=== PATIENT | female | born 2000 | race African-American/Black ===

== ENCOUNTER 2018-04-12 17:36 | Emergency (ER) | payer SELFPAY ==
--- OUTSIDE RECORDS SUMMARY | 2018-04-12 17:48 | XMS REPORT | Continuity of Care Document ---
:2000 Author Organization [facility] Address [address], [place] [id number] Phone Care Team Providers Name Role Phone Amanda Vega NP Unavailable Unavailable Allergies, Adverse Reactions, Alerts Substance Reaction Status No Known Allergies Active Medications Medication Instructions Dosage Effective Dates Status Comments (start - stop) Depo-Provera 150 mg/mL IM Q 11-13 weeks - Active intramuscular suspension Problems Condition Effective Dates (start - Clinical Status Comments stop) Body mass index (BMI) 23.0-23.9, adult Human immunodeficiency virus [HIV] - counseling Encounter for test, result negative Encounter for initial prescription of injectable contracep Procedures Procedure Date PREVENTIVE COUNSELING, Under 8 Minutes URINE TEST OFFICE/OUTPATIENT VISIT, NEW INJECTION DEPO/CEFTRIAXONE BLOOD PRESSURE Height/Weight Method Initiation OTHER Medical Services Contraceptive Cashier Host/Hostess.Svc. Other Cashier Host/Hostess.Svc. STI DEPO Results Test Name Date and Time Measure Units Reference Range Abnormal Flag Status Comments Panel Description: High Sensitivity Urine Test Final High Sensitivity Urine 16:04:46 NegativeInternal Quality Final Test Control: Positive Advance Directives Directive Yes / No Effective Date File Name No information Encounters Encounter Practice Location Reason(s) Diagnoses Date Provider Providers Description For Visit Copied on Encounter OFFICE/OUTPA [facility] Body mass index Silvia Referring TIENT VISIT, [facility] Control (BMI) 23.0-23.9, 8-201 Amanda. Provider: SADI Vasques (chief adultHuman [address] complaint) immunodeficiency Javi Vega JSolo, [address], [address] [facility] [address], [facility], for test, [place], , result [id number], [place], [id number]. [id number], negativeEncounter [place]. tel:+ for initial tel: [phone] tel:+60 prescription of [phone] [id number] injectable contracep Family History Family Member Diagnosis Age At Onset 1st degree relative No hx of coronary heart disease (female <65, male <55) 1st degree relative No hx of osteoporosis 1st degree relative No hx of cancer of breast, colon, endometrium or ovary 1st degree relative No hx of venous thromboembolism Immunizations Vaccine Date Status Comments No information Payers Payer name Insurance type Covered green party ID Authorization(s) Medicaid MC [id number] Social History Type Description Quantity Date Captured Comments Alcohol Use Details Unknown Caffeine Use Details Unknown Tobacco Use Status Current non-smoker Smoking Status Never smoker Non-Smoking Tobacco : No Details Available : No Details Available 2018 Use Details Sex Female Vital Signs Date / Height Weight BMI Pulse Blood Temperature Respiratory Body Head BMI Pulse Inhaled Time: Rate Pressure Rate Surface Circumference percentile Ox Ox Area 67.50 154.80 23.8 120/80 -2019 in lbs 9 mm[Hg] 3:39 kg/m PM eter (2) Chief Complaint And Reason For Visit Most recent encounter only, dated '03/25/2018 15:20'. Control ( chief complaint) Reason For Referral Reason For Referral No information Plan Of Treatment Date Type Action Status No information History Of Present Illness Encounter Date Complaint History Of Present Illness No information Functional Status Date Functional Assessment No information Medications Administered Medication Instructions Dosage Effective Dates (start - stop) Status Comments No information Instructions Date Instruction Additional Information No information Assessments Type Assessment Date assessment Body mass index (BMI) 23.0-23.9, adult assessment Human immunodeficiency virus [HIV] counseling assessment Encounter for test, result negative assessment Encounter for initial prescription of injectable contracep 2018 Goals Health Concern Goal Type Priority Status Date No information Medical Equipment Description Device [place] Device Identifier Effective Dates (start - stop ) Status No information Mental Status Date Cognitive Assessment Normal Orientation Health Concerns Observation Date No information Concern Status Date No information
[2018-04-12 18:02] VITALS: BP 142/79
--- NOTE | 2018-04-12 18:02 | UC ---
Abdominal Pain Female HPI - HPI Summary HPI Summary: 18 yo female presents with pelvic pain. She tells me that beginning last night around 1999 she developed b/l pelvic pain with no other symptoms. She rates the pain an 8.5/10. She says that her menstrual cycle is irregular and LMP was 2 days of spotting on 04/09. Prior to that she had 4-5 days of a period on 02/19 and before that on 01/18, but before that was 01/04. She started depo shots in September 2017. Has never had a pelvic exam or ultrasound. No history of uterine abnormalities or ovarian cysts that she knows of. Was last sexually active with her boyfriend of two years on 04/01. No concern for STDs today. She denies fever , chills, n/v/d/c, vaginal discharge/odor/lesions/rash, dysuria, or flank pain. - History of Current Complaint Stated Complaint: STOMACH PAIN Time Seen by Provider: 04/12/18 18:01 Hx Obtained From: Patient Hx Last Menstrual Period: unknown Onset/Duration: Sudden Onset Severity Initially: Severe Severity Currently: Severe Pain Intensity: 9 Pain Scale Used: 0-10 Numeric Allergies/Adverse Reactions: Allergies Allergy/AdvReac Type Severity Reaction Status Date / Time No Known Allergies Allergy Verified 04/12/18 17:52 Home Medications: Home Medications medroxyPROGESTERone ACETATE* [DEPO-Provera] 150 mg IM SEE INSTRUCTIONS 04/12/18 [History Confirmed 04/12/18] PMH/Surg Hx/FS Hx/Imm Hx - Additional Past Medical History Additional PMH: None - Surgical History Surgical History: Yes Surgery Procedure, Year, and Place: wisdom removal - Family History Known Family History: Positive: None - Social History Occupation: Student Lives: With Family Alcohol Use: None Substance Use Type: None Smoking Status (MU): Never Smoked Tobacco Review of Systems All Other Systems Reviewed And Are Negative: Yes Constitutional: Positive: Negative Skin: Positive: Negative Eyes: Positive: Negative ENT: Positive: Negative Respiratory: Positive: Negative Cardiovascular: Positive: Negative Gastrointestinal: Positive: Abdominal Pain Genitourinary: Positive: Negative Motor: Positive: Negative Neurovascular: Positive: Negative Neurological: Positive: Negative Psychological: Positive: Negative Physical Exam - Summary Physical Exam Summary: GENERAL: NAD. WDWN. No pain distress. SKIN: No rashes, sores, lesions, or open wounds. NECK: Supple. Nontender. No lymphadenopathy. CHEST: CTAB. No r/r/w. No accessory muscle use. Breathing comfortably and in no distress. CV: RRR. Without m/r/g. Pulses intact. Cap refill <2seconds ABDOMEN: Mild LLQ and RLQ TTP. Soft. No distention or guarding. No CVA tenderness. Bowel sounds present NEURO: Alert. PSYCH: Age appropriate behavior. Triage Information Reviewed: Yes Vital Signs: Initial Vital Signs Temp 99.9 F 04/12/18 17:47 Pulse 91 04/12/18 17:47 Resp 18 04/12/18 17:47 BP 142/79 04/12/18 17:47 Pulse Ox 98 04/12/18 17:47 Laboratory Tests 04/12/18 04/12/18 18:08 18:12 POC Urine Color Yellow POC Urine Clarity Clear POC Urine pH 5.5 POC Ur Specif [place] >= 1.030 POC Urine Protein Negative POC Ur Glucose (UA) Negative POC Urine Ketones 1+ A POC Urine Blood Negative POC Urine Nitrite Negative POC Urine Bilirubin Negative POC Urine Urobilinogen 0.2 POC U Leukocyte Esteras Negative POC Ur Test Negative Vital Signs Reviewed: Yes Abd Pain Female Course/Dx - Course Course Of Treatment: She is well appearing, afebrile, and laughing throughout the exam. She declined pelvic exam today as she has never had one before and would prefer to proceed with an ultrasound. UA and negative. US: IMPRESSION: No acute findings. Bicornuate uterine morphology. I discussed results with pt. I am unsure the cause of her discomfort at this time, but she states she is feeling better. We discussed obtaining labwork at this time to further evaluate her symptoms, but she declined and wishes to follow up at the ED if her symptoms return/worsen. - Differential Dx/Diagnosis Provider Diagnosis: Lower abdominal pain Discharge - Sign-Out/Discharge Documenting (check all that apply): Patient Departure All imaging exams completed and their final reports reviewed: Yes - Discharge Plan Condition: Stable Disposition: HOME Patient Education Materials: Pelvic Pain in Women (ED) Referrals: No Primary Care Phys,NOPCP [Primary Care Provider] - Additional Instructions: If you develop a fever, shortness of breath, chest pain, new or worsening symptoms - please call your PCP or go to the ED. I am unsure the cause of your lower abdominal pain today, but your workup here was normal. If your symptoms worsen or if you develop a fever or new symptoms - please go to the ER for a further workup - Billing Disposition and Condition Condition: STABLE Disposition: Home
== END 2018-04-12 19:54 | disposition home or self-care (01) ==
LOC: UCEAST 17:36
DX: R10.30 Lower abdominal pain, unspecified (principal)
CPT/HCPCS: 76830; 81003; 84702; 99201; G0463